=== PATIENT | female | born 1955 | race Caucasian/White ===

== ENCOUNTER 2017-05-17 06:02 | Day surgery (SDC) | payer BC ==
[~2017-05-17 06:02] MED LIST: Lactated Ringers 1,000 ML IV SCH; Lidocaine 1%/Sod Bicarbonate in NS 8.4% 1 ML Syringe IDERM PRN; Scopolamine 1 MG Transdermal Patch TRDERM ONE; Sodium Chloride 0.9% 10 ML Syringe FLUSH PRN
[2017-05-17] MEDS ORDERED: Bupivacaine 0.25% 30 ML SDV ONE (06:22)
[2017-05-17] MEDS: Lactated Ringers 1,000 ML IV SCH ×2 (06:25→14:25)
[2017-05-17] MEDS ORDERED: Scopolamine 1 MG Transdermal Patch TRDERM ONE (06:30)
[2017-05-17] MEDS ORDERED: Naloxone 0.4 MG/ML SDV IVPUSH PRN (06:32)
[2017-05-17] MEDS ORDERED: Ondansetron 4 MG/2 ML SDV IVPUSH PRN ×2 (06:32→09:41)
[2017-05-17] MEDS ORDERED: Ropivacaine 0.5% 5 MG/ML 30 ML SDV ONE ×2 (06:40→06:50)
[2017-05-17] MEDS ORDERED: EPINEPHrine 1 MG/ML SDV ONE ×2 (06:40→06:50)
--- NOTE | 2017-05-17 06:40 | PCM.PREANE ---
Preanesthetic Assessment - Anesthesia/Transfusion/Family Hx Anesthesia History: Prior Anesthesia Reaction Type of Anesthesia Reaction: Excessive Nausea/Vomiting Family History of Anesthesia Reaction: No - Review of Systems General: No Symptoms Pulmonary: No Symptoms Cardiovascular: Other (htn) Gastrointestinal: Other (GERD occ eepending on diet ) Neurological: No Symptoms Other: Reports: None, Thyroid Problems (hypothyroid ) - Physical Assessment NPO Status Date: 05/16/17 NPO Status Time: 21:00 Pulse: 71 O2 Sat by Pulse Oximetry: 96 Respiratory Rate: 16 Blood Pressure: 137/99 Temperature: 36.6 C Height: 1.68 m Weight: 89 kg ASA Class: 2 Mental Status: Alert & Oriented x3 Airway Class: Mallampati = 2 Dentition: Reports: Normal Dentition Thyro-Mental Finger Breadths: 3 Mouth Opening Finger Breadths: 3 ROM/Head Extension: Full Lungs: Clear to Auscultation, Normal Respiratory Effort Cardiovascular: Regular Rate, Regular Rhythm - Lab Values: Laboratory Last Values MRSA (PCR) Negative 05/01/17 11:23 - Allergies Allergies/Adverse Reactions: Allergies Allergy/AdvReac Type Severity Reaction Status Date / Time latex Allergy Blisters Verified 05/16/17 14:14 Penicillins Allergy Cannot Verified 05/16/17 14:14 Remember hydrochlorothiazide AdvReac Cough Verified 05/16/17 14:25 lisinopril AdvReac Cough Verified 05/16/17 14:25 diuretics AdvReac Cough Uncoded 05/16/17 14:25 - Blood Blood Available: No Product(s) Available: None - Anesthesia Plan Pre-Op Medication Ordered: None Beta Joann: Carvedilol Med Last Dose Date: 05/17/17 Med Last Dose Time: 04:00 - Acknowledgements Anesthesia Type Planned: General Anesthesia (if spinal is ineffective ), Spinal (with duramorph) Pt an Appropriate Candidate for the Planned Anesthesia: Yes Alternatives and Risks of Anesthesia Discussed w Pt/Guardian: Yes Pt/Guardian Understands and Agrees with Anesthesia Plan: Yes PreAnesthesia Questionnaire Cardiovascular History: Reports: High Cholesterol, Hypertension Respiratory History: Reports: None Gastrointestinal History: Reports: Diverticulosis, GERD Genitourinary History: Reports: None [employer] O[employer]ATOR History: Reports: None Musculoskeletal History: Reports: Osteoarthritis, Other (See Below) Psychiatric History: Reports: None Endocrine/Metabolic History: Reports: Hypothyroidism, Osteopenia Hematologic History: Reports: None Immunologic History: Reports: None Oncologic (Cancer) History: Reports: None Dermatologic History: Reports: Melanoma - Past Surgical History Head Surgeries/Procedures: Reports: None HEENT Surgical History: Reports: Myringotomy w Tube(s), Tonsillectomy Cardiovascular Surgical History: Reports: None Respiratory Surgical History: Reports: None GI Surgical History: Reports: Appendectomy, Colonoscopy Female Surgical History: Reports: Breast Biopsy Male Surgical History: Reports: None Endocrine Surgical History: Reports: None Neurological Surgical History: Reports: Other (See Below) Other Neurological Surgeries/Procedures: disc repair Musculoskeletal Surgical History: Reports: Other (See Below) Other Musculoskeletal Surgeries/Procedures:: palmar fascia contracture with surgical repair, right knee arthroplasty, right shoulder arthroplasty, tumor removed from left foot x2, left knee arthroplasty, left wrist ORIF Oncologic Surgical History: Reports: None - SUBSTANCE USE Smoking Status *Q: Never Smoker Second Hand Smoke Exposure: No Recreational Drug Use History: No - HOME MEDS Home Medications: Home Meds Carvedilol [Carvedilol] 25 mg PO BID 05/16/17 [History] Cholecalciferol (Vitamin D3) [Vitamin D3] 1,000 unit PO DAILY 05/16/17 [History] Levothyroxine 25 mg PO DAILY 05/16/17 [History] Pantoprazole Sodium [Protonix] 40 mg PO DAILY 05/16/17 [History] Simvastatin [Zocor] 20 mg PO DAILY 05/16/17 [History] - CURRENT (IN HOUSE) MEDS Current Meds: Current Medications Lactated Ringer's (Ringers, Lactated) 1,000 mls @ 125 mls/hr IV ASDIRECTED JAROCHO Stop: 05/17/17 23:00 Lidocaine/Sodium Bicarbonate (Buffered Lidocaine 1% In Ns 8.4%) 0.25 ml IDERM ONETIME PRN PRN Reason: Prior to IV Start Stop: 05/17/17 18:00 Scopolamine (Scopolamine) 1 each TRDERM ONETIME ONE Stop: 05/17/17 00:02 Sodium Chloride (Saline Flush) 10 ml FLUSH ASDIRECTED PRN PRN Reason: Keep Vein Open Stop: 05/17/17 18:00 Discontinued Medications Lactated Ringer's (Ringers, Lactated) 1,000 mls @ 125 mls/hr IV ASDIRECTED JAROCHO Lidocaine/Sodium Bicarbonate (Buffered Lidocaine 1% In Ns 8.4%) 0.25 ml IDERM ONETIME PRN PRN Reason: Prior to IV Start Scopolamine (Scopolamine) 1 each TRDERM ONETIME ONE Stop: 05/17/17 00:02 Sodium Chloride (Saline Flush) 10 ml FLUSH ASDIRECTED PRN PRN Reason: Keep Vein Open
[2017-05-17] MEDS ORDERED: Propofol 200 MG/20 ML SDV ONE ×2 (06:57→09:21)
[2017-05-17] MEDS ORDERED: fentaNYL 100 MCG/2 ML SDV ONE (06:57)
[2017-05-17] MEDS ORDERED: Midazolam 1 MG/ML 2 ML SDV ONE (06:57)
[2017-05-17] MEDS ORDERED: ceFAZolin 1 GM Vial ONE (07:01)
[2017-05-17] MEDS ORDERED: Ondansetron 4 MG/2 ML SDV ONE (07:02)
[2017-05-17] MEDS ORDERED: Dexamethasone 4 MG/ML SDV ONE (07:02)
[2017-05-17] MEDS ORDERED: Ketamine 500 mg/10 ML MDV ONE (07:04)
[2017-05-17] MEDS ORDERED: Lidocaine 1% 4 ML ONE (07:32)
[2017-05-17] MEDS: Iodine/Sodium Iodide 2% Tincture 30 ML Bottle ONE ×2 (08:04→08:40)
[2017-05-17] MEDS: ceFAZolin 1 GM Vial ONE ×2 (08:04→08:43)
[2017-05-17] MEDS: Bupivacaine 0.25% 30 ML SDV ONE ×5 (08:05→09:15)
[2017-05-17] MEDS: Morphine 8 MG, EPINEPHrine 0.3 MG, Cefuroxime 750 MG, Ketorolac 30 MG, Sodium Chloride ... ONE ×10 (08:06→08:48)
[2017-05-17] MEDS: Vancomycin 1 GM SDV ONE ×2 (08:06→08:52)
[2017-05-17] MEDS: Triamcinolone Acetonide 40 MG/ML 1 ML MDV ONE ×3 (08:07→09:15)
[2017-05-17] MEDS ORDERED: Lactated Ringers 2,000 ML ONE (08:41)
[2017-05-17] MEDS ORDERED: Morphine 4 MG/ML Syringe IVPUSH PRN (09:00)
[2017-05-17] MEDS ORDERED: Cyclobenzaprine 10 MG Tab PO PRN (09:00)
[2017-05-17] MEDS ORDERED: Magnesium Hydroxide 400 MG/5 ML Susp 30 ML Cup PO PRN (09:00)
[2017-05-17] MEDS ORDERED: Bisacodyl 5 MG Tab PO PRN (09:00)
[2017-05-17] MEDS ORDERED: Sennosides 8.6 MG Tab PO PRN (09:00)
[2017-05-17] MEDS ORDERED: Ketorolac 15 MG/ML SDV IVPUSH PRN (09:00)
[2017-05-17] MEDS ORDERED: Meperidine PF 50 MG/ML Syringe IVPUSH PRN (09:41)
[2017-05-17] MEDS ORDERED: fentaNYL 100 MCG/2 ML SDV IVPUSH PRN (09:41)
[2017-05-17] MEDS ORDERED: diphenhydrAMINE 50 MG/ML SDV IVPUSH PRN (09:41)
--- NOTE | 2017-05-17 09:41 | PCM.POSTAN ---
POST ANESTHESIA ASSESSMENT - MENTAL STATUS Mental Status: Alert, Oriented - VITAL SIGNS Pulse Rate: 61 SaO2: 100 Resp Rate: 16 Blood Pressure: 126/71 Temperature: 36.4 C - RESPIRATORY Respiratory Status: Respiratory Rate WNL, Airway Patent, O2 Saturation Stable, Supplemental Oxygen - CARDIOVASCULAR CV Status: Pulse Rate WNL, Blood Pressure Stable - GASTROINTESTINAL GI Status: No Symptoms - PAIN Pain Score: 0 - POST OP HYDRATION Hydration Status: Adequate & Stable
--- NOTE | 2017-05-17 10:27 | CR ---
Left knee: AP and lateral views of the left knee were obtained. Comparison: No prior knee exam. Knee prosthesis is seen. Components are aligned. Soft tissue air is noted from the surgical procedure. Underlying bony structures are intact. Impression: 1. Satisfactory postop radiographic appearance of recently placed left knee prosthesis. Diagnostic code #2
[2017-05-17] MEDS ORDERED: Pantoprazole 40 MG Tab.CR PO PRN (13:06)
--- NOTE | 2017-05-17 14:45 | PCM.SN ---
- Free Text/Narrative Note: Left selective femoral nerve block at the adductor canal for post-procedure pain control Time Out: 1004 Start: 1004 End: 1008 Chart reviewed. Consent signed. Questions answered. Appropriate monitors applied. Time out performed. Left mid-shaft femur evaluated with ultrasound. Scanning medially femur, I was able to identify the femoral artery in the adductor canal. The saphenous nerve was lateral to the artery. The skin was prepped lateral to the ultrasound probe with chlorahexadine. Skin localized with 3mL of 1% lidocaine. The 21ga 4 insulated block needle was inserted under direct ultrasound guidance into the adductor canal. 20mL of 0.5% ropivacaine with 1:200,000 epinephrine was injected cirmcumferentially about the nerve with intermittent negative aspiration every 5mL. Patient tolerated the procedure well. See vital signs on nurses notes. Block completed postoperatively in PACU. Mynor Mendez CRNA
[2017-05-17] MEDS: ceFAZolin 2 GM in Premix Bag 1 BAG IV SCH ×2 (15:28→23:08)
--- NOTE | 2017-05-17 16:45 | PCM.CONS ---
H&P History of Present Illness - General Date of Service: 05/17/17 Admit Problem/Dx: Admission Diagnosis/Problem Admission Diagnosis/Problem Osteoarthritis of knee Source of Information: Patient, Old Records, Provider, RN, RN Notes Reviewed History Limitations: Reports: No Limitations - History of Present Illness Initial Comments - Free Text/Narative: Catalina Dominguez is a 61 yo female patient of Dr. Rodriguez who is post-operative day 0 of left revision with TKA. Hospital medicine was consulted for post-operative medical care. At this time she is resting comfortably. Pain is controlled at 2/ 10. She denies any chest pain, shortness of breath, palpitations, nausea, or vomiting. She carries a history of: HLD, HTN, diverticulosis, GERD, OA, hypothyroidism, osteopenia, melanoma. She was never a smoker. She is a full code. Her primary care provider is Dr. Baker at [facility] in [place]. Left Knee Pain Score (Numeric/FACES): 2 - Related Data Allergies/Adverse Reactions: Allergies Allergy/AdvReac Type Severity Reaction Status Date / Time latex Allergy Blisters Verified 05/16/17 14:14 Penicillins Allergy Cannot Verified 05/16/17 14:14 Remember hydrochlorothiazide AdvReac Cough Verified 05/16/17 14:25 lisinopril AdvReac Cough Verified 05/16/17 14:25 diuretics AdvReac Cough Uncoded 05/16/17 14:25 Home Medications: Home Meds Carvedilol [Carvedilol] 25 mg PO BID 05/16/17 [History] Cholecalciferol (Vitamin D3) [Vitamin D3] 1,000 unit PO DAILY 05/16/17 [History] Levothyroxine 25 mg PO DAILY 05/16/17 [History] Pantoprazole Sodium [Protonix] 40 mg PO DAILY PRN 05/16/17 [History] Simvastatin [Zocor] 20 mg PO BEDTIME 05/16/17 [History] Past Medical History Cardiovascular History: Reports: High Cholesterol, Hypertension Respiratory History: Reports: None Gastrointestinal History: Reports: Diverticulosis, GERD Genitourinary History: Reports: None 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 Musculoskeletal History: Reports: Osteoarthritis, Other (See Below) Psychiatric History: Reports: None Endocrine/Metabolic History: Reports: Hypothyroidism, Osteopenia Hematologic History: Reports: None Immunologic History: Reports: None Oncologic (Cancer) History: Reports: None Dermatologic History: Reports: Melanoma - Past Surgical History Head Surgeries/Procedures: Reports: None HEENT Surgical History: Reports: Myringotomy w Tube(s), Tonsillectomy Cardiovascular Surgical History: Reports: None Respiratory Surgical History: Reports: None GI Surgical History: Reports: Appendectomy, Colonoscopy Female Surgical History: Reports: Breast Biopsy Male Surgical History: Reports: None Endocrine Surgical History: Reports: None Neurological Surgical History: Reports: Other (See Below) Other Neurological Surgeries/Procedures: disc repair Musculoskeletal Surgical History: Reports: Other (See Below) Other Musculoskeletal Surgeries/Procedures:: palmar fascia contracture with surgical repair, right knee arthroplasty, right shoulder arthroplasty, tumor removed from left foot x2, left knee arthroplasty, left wrist ORIF Oncologic Surgical History: Reports: None Social & Family History - Tobacco Use Smoking Status *Q: Never Smoker Second Hand Smoke Exposure: No - Caffeine Use Caffeine Use: Reports: Soda - Recreational Drug Use Recreational Drug Use: No Drug Use in Last 12 Months: No H&P Review of Systems - Review of Systems: Review Of Systems: See Below General: Reports: No Symptoms HEENT: Reports: No Symptoms Pulmonary: Reports: No Symptoms Cardiovascular: Reports: No Symptoms Gastrointestinal: Reports: No Symptoms Genitourinary: Reports: No Symptoms Musculoskeletal: Reports: Joint Pain (left knee ) Skin: Reports: No Symptoms Psychiatric: Reports: No Symptoms Neurological: Reports: No Symptoms Hematologic/Lymphatic: Reports: No Symptoms Immunologic: Reports: No Symptoms Exam - Exam Exam: See Below - Vital Signs Vital Signs: Last Vital Signs Temp 97.9 F 05/17/17 11:00 Pulse 65 05/17/17 11:00 Resp 16 05/17/17 11:00 BP 136/89 05/17/17 11:00 Pulse Ox 94 L 05/17/17 11:00 Weight: 196 lb 3.382 oz - Exam Quality Assessment: DVT Prophylaxis General: Alert, Oriented, Cooperative HEENT: PERRLA, Hearing Intact, Mucosa Moist & Wren, Nares Patent, Normal Nasal Septum, Posterior Pharynx Clear, Conjunctiva Clear, EOMI, EACs Clear, TMs Clear Neck: Supple, Trachea Midline. No: JVD Lungs: Clear to Auscultation, Normal Respiratory Effort Cardiovascular: Regular Rate, Regular Rhythm GI/Abdominal Exam: Normal Bowel Sounds, Soft, Non-Tender, No Organomegaly, No Distention, No Abnormal Bruit, No Mass, Pelvis Stable (Female) Exam: Deferred Rectal (Female) Exam: Deferred Back Exam: Normal Inspection, Full Range of Motion Extremities: No Pedal Edema, Normal Capillary Refill, Leg Pain (left), Other ( ANGIE bandage in place on left leg. Bandage is dry and intact. Cooling pack in place. ) Peripheral Pulses: 2+: Radial (L), Radial (R), Posterior Tibial (R), Dorsalis Pedis (R) Skin: Warm, Dry, Intact Neurological: Cranial Nerves Intact (grossly ) Neuro Extensive - Mental Status: Alert, Oriented x3, Normal Mood/Affect, Normal Cognition, Memory Intact Psychiatric: Alert, Normal Affect, Normal Mood Consult PN Assessment/Plan POD#: 0 Procedures: Procedures DXA BONE DENSITY AXIAL (04/20/17) (1) S/P total knee arthroplasty SNOMED Code(s): 8002722209145, 5799473416701 Code(s): Z96.659 - PRESENCE OF UNSPECIFIED ARTIFICIAL KNEE JOINT Priority: High Current Visit: Yes Qualifiers: Laterality: left Qualified Code(s): Z96.652 - Presence of left artificial knee joint (2) Osteoarthritis SNOMED Code(s): 512952840 Code(s): M19.90 - UNSPECIFIED OSTEOARTHRITIS, UNSPECIFIED SITE Priority: High Current Visit: Yes Qualifiers: Osteoarthritis location: knee Osteoarthritis type: primary Laterality: bilateral Qualified Code(s): M17.0 - Bilateral primary osteoarthritis of knee (3) HLD (hyperlipidemia) SNOMED Code(s): 06475186 Code(s): E78.5 - HYPERLIPIDEMIA, UNSPECIFIED Priority: Low Current Visit : No Qualifiers: Hyperlipidemia type: unspecified Qualified Code(s): E78.5 - Hyperlipidemia , unspecified (4) HTN (hypertension) SNOMED Code(s): 03991197 Code(s): I10 - ESSENTIAL (PRIMARY) HYPERTENSION Priority: Low Current Visit: No Qualifiers: Hypertension type: unspecified Qualified Code(s): I10 - Essential (primary ) hypertension (5) Diverticulosis SNOMED Code(s): 22215390 Code(s): K57.90 - DVRTCLOS OF INTEST, PART UNSP, W/O PERF OR ABSCESS W/O BLEED Priority: Low Current Visit: No Qualifiers: Diverticulosis site: unspecified location Diverticulosis bleeding: diverticulosis without bleeding Qualified Code(s): K57.90 - Diverticulosis of intestine, part unspecified, without perforation or abscess without bleeding (6) GERD (gastroesophageal reflux disease) SNOMED Code(s): 224093745 Code(s): K21.9 - GASTRO-ESOPHAGEAL REFLUX DISEASE WITHOUT ESOPHAGITIS Priority: Low Current Visit: No Qualifiers: Esophagitis presence: esophagitis presence not specified Qualified Code(s) : K21.9 - Gastro-esophageal reflux disease without esophagitis (7) Hypothyroidism SNOMED Code(s): 51387037 Code(s): E03.9 - HYPOTHYROIDISM, UNSPECIFIED Priority: Low Current Visit : No Qualifiers: Hypothyroidism type: unspecified Qualified Code(s): E03.9 - Hypothyroidism , unspecified (8) Osteopenia SNOMED Code(s): 485558952 Code(s): M85.80 - OT DISRD OF BONE DENSITY AND STRUCTURE, UNSPECIFIED SITE Priority: Low Current Visit: No Qualifiers: Laterality: unspecified laterality (9) History of melanoma SNOMED Code(s): 472585785 Code(s): Z85.820 - PERSONAL HISTORY OF MALIGNANT MELANOMA OF SKIN Priority : Low Current Visit: No Problem List Initiated/Reviewed/Updated: Yes Plan: I/P: Acute: S/P left total knee arthroplasty - post-operative day 0 -DVT prophylaxis and pain management per primary care team -PT/OT -IS/RT -Monitor oxygen saturation -Titrate oxygen as needed -Vital signs stable -Monitor labs -Pre-operative Hgb was 14.6 S/P right knee cortisone injection -Management per primary care team Osteoarthritis of bilateral knees -Pain management per primary care team Chronic: (home meds) HLD HTN Diverticulosis GERD Hypothyroidism Osteopenia Hx/o melanoma Plan: CM for discharge planning GI prophylaxis Home medications as indicated Other orders as listed above Routine AM labs She is a full code. Her PCP is Dr. Baker Thank you for allowing us to participate in the care of this patient!! Total time spent with patient 25 minutes Requesting Provider: Dr. Rodriguez Date Consult Requested: 05/17/17 Reason for Consult: Post-operative medical management Time Spent (in minutes): 25
[2017-05-17] MEDS: Acetaminophen/oxyCODONE 325-5 MG Tab PO PRN (20:22)
[2017-05-17] MEDS: Docusate Sodium 100 MG Cap PO SCH (20:23)
[2017-05-17] MEDS: Carvedilol 12.5 MG Tab PO SCH (20:23)
[2017-05-17] MEDS: Famotidine 20 MG Tab PO SCH (20:30)
[2017-05-17] MEDS ORDERED: Simvastatin 20 MG Tab PO SCH (21:00)
--- NOTE | 2017-05-18 06:26 | PCM.CONSN ---
- General Info Date of Service: 05/18/17 Admission Dx/Problem (Free Text): Admission Diagnosis/Problem Admission Diagnosis/Problem Osteoarthritis of knee Subjective Update: In to see Catalina. She is doing well. Pain is controlled at 2/10. She has been urinating and ambulating. Denies any nausea, vomiting, chest pain, SOB, or palpitations. Functional Status: Reports: Pain Controlled, Tolerating Diet, Ambulating, Urinating, Incentive Spirometry. Denies: New Symptoms - Review of Systems General: Reports: No Symptoms HEENT: Reports: No Symptoms Pulmonary: Reports: No Symptoms Cardiovascular: Reports: No Symptoms Gastrointestinal: Reports: No Symptoms Genitourinary: Reports: No Symptoms Musculoskeletal: Reports: No Symptoms, Leg Pain (left ) Skin: Reports: No Symptoms Neurological: Reports: No Symptoms Psychiatric: Reports: No Symptoms - Patient Data Vitals - Most Recent: Last Vital Signs Temp 98.0 F 05/18/17 04:30 Pulse 64 05/18/17 04:30 Resp 20 05/18/17 04:30 BP 124/68 05/18/17 04:30 Pulse Ox 93 L 05/18/17 04:30 Weight - Most Recent: 196 lb 3.382 oz I&O - Last 24 Hours: Intake & Output 05/17/17 05/17/17 05/18/17 14:59 22:59 06:59 Intake Total 250 480 Output Total 1250 800 Balance -1000 -320 Lab Results Last 24 Hours: Laboratory Results - last 24 hr 05/18/17 Range/Units 05:03 WBC 17.24 H (3.98-10.04) K/mm3 RBC 3.97 L (3.98-5.22) M/mm3 Hgb 11.2 (11.2-15.7) gm/L Hct 34.4 (34.1-44.9) % MCV 86.6 (79.4-94.8) fl MCH 28.2 (25.6-32.2) pg MCHC 32.6 (32.2-35.5) g/dl RDW Std Deviation 41.2 (36.4-46.3) fL Plt Count 227 (182-369) K/mm3 MPV 10.9 (9.4-12.3) fl Neut % (Auto) 80.9 H (34.0-71.1) % Lymph % (Auto) 9.0 L (19.3-51.7) % [place] % (Auto) 9.9 (4.7-12.5) % Eos % (Auto) 0 L (0.7-5.8) Baso % (Auto) 0.0 L (0.1-1.2) % Neut # (Auto) 13.95 H (1.56-6.13) K/mm3 Lymph # (Auto) 1.55 (1.18-3.74) K/mm3 [place] # (Auto) 1.70 H (0.24-0.36) K/mm3 Eos # (Auto) 0.00 L (0.04-0.36) K/mm3 Baso # (Auto) 0.00 L (0.01-0.08) K/mm3 Med Orders - Current: Current Medications Aspirin (Ecotrin) 325 mg PO BID [facility] Bisacodyl (Dulcolax) 5 mg PO DAILY PRN PRN Reason: Constipation Carvedilol (Coreg) 25 mg PO BID [facility] Last Admin: 05/17/17 20:23 Dose: 25 mg Cholecalciferol (Vitamin D3) 1,000 units PO DAILY [facility] Cyclobenzaprine HCl (Flexeril) 10 mg PO TID PRN PRN Reason: Spasms Docusate Sodium (Colace) 100 mg PO BID [facility] Last Admin: 05/17/17 20:23 Dose: 100 mg Famotidine (Pepcid) 20 mg PO BID [facility] Last Admin: 05/17/17 20:30 Dose: 20 mg Cefazolin Sodium/Dextrose 2 gm (/ Premix) 50 mls @ 100 mls/hr IV Q8H [facility] Stop: 05/18/17 07:29 Last Admin: 05/17/17 23:08 Dose: 100 mls/hr Ketorolac Tromethamine (Toradol) 15 mg IVPUSH Q6H PRN PRN Reason: Pain Levothyroxine Sodium (Levothyroxine) 25 mcg PO DAILY [facility] Magnesium Hydroxide (Milk Of Magnesia) 30 ml PO BID PRN PRN Reason: Constipation Morphine Sulfate (Morphine) 2 mg IVPUSH Q2H PRN PRN Reason: Breakthrough Pain Naloxone HCl (Narcan) 0.1 mg IVPUSH Q5M PRN PRN Reason: Oversedation Ondansetron HCl (Zofran) 4 mg IVPUSH Q6H PRN PRN Reason: Nausea/Vomiting Oxycodone/Acetaminophen (Percocet 325-5 Mg) 1 - 2 tab PO Q4H PRN PRN Reason: Pain Last Admin: 05/17/17 20:22 Dose: 2 tab Pantoprazole Sodium (Protonix) 40 mg PO DAILY PRN PRN Reason: Indigestion Senna (Senna) 8.6 mg PO BID PRN PRN Reason: Constipation Simvastatin (Zocor) 20 mg PO BEDTIME [facility] Last Admin: 05/17/17 20:30 Dose: 20 mg Discontinued Medications Bupivacaine HCl (Marcaine 0.25%) Confirm Administered Dose 30 ml .ROUTE .STK- MED ONE Stop: 05/17/17 06:23 Last Admin: 05/17/17 09:15 Dose: 4 ml Bupivacaine HCl (Marcaine 0.25%) Confirm Administered Dose 30 ml .ROUTE .STK- MED ONE Stop: 05/17/17 06:23 Cefazolin Sodium (Ancef) Confirm Administered Dose 2 gm .ROUTE .STK-MED ONE Stop: 05/17/17 06:22 Last Admin: 05/17/17 08:43 Dose: 2 gm Cefazolin Sodium (Ancef) Confirm Administered Dose 2 gm .ROUTE .STK-MED ONE Stop: 05/17/17 07:02 Morphine Sulfate 8 mg/Epinephrine HCl 0.3 mg/Cefuroxime Sodium 750 mg/Ketorolac Tromethamine 30 mg/Sodium Chloride 27.9 ml 0 mg .XX ONETIME ONE Stop: 05/17/17 07:46 Last Admin: 05/17/17 08:48 Dose: 788.3 mg Dexamethasone (Dexamethasone) Confirm Administered Dose 4 mg .ROUTE .STK-MED ONE Stop: 05/17/17 07:03 Diphenhydramine HCl (Benadryl) 25 mg IVPUSH Q6H PRN PRN Reason: Pruritis Stop: 05/17/17 12:30 Epinephrine HCl (Adrenalin) Confirm Administered Dose 1 mg .ROUTE .STK-MED ONE Stop: 05/17/17 06:41 Epinephrine HCl (Adrenalin) Confirm Administered Dose 1 mg .ROUTE .STK-MED ONE Stop: 05/17/17 06:51 Fentanyl (Sublimaze) Confirm Administered Dose 100 mcg .ROUTE .STK-MED ONE Stop: 05/17/17 06:58 Fentanyl (Sublimaze) 50 mcg IVPUSH Q5M PRN PRN Reason: Pain Stop: 05/17/17 12:30 Lactated Ringer's (Ringers, Lactated) 1,000 mls @ 125 mls/hr IV ASDIRECTED [facility] Lactated Ringer's (Ringers, Lactated) 1,000 mls @ 125 mls/hr IV ASDIRECTED [facility] Stop: 05/17/17 23:00 Last Admin: 05/17/17 14:25 Dose: 125 mls/hr Lidocaine HCl (Xylocaine-Mpf 1%) Confirm Administered Dose 4 mls @ as directed .ROUTE .STK-MED ONE Stop: 05/17/17 07:33 Lactated Ringer's (Ringers, Lactated) Confirm Administered Dose 2,000 mls @ as directed .ROUTE .STK-MED ONE Stop: 05/17/17 08:42 Iodine (Iodine 2% Mild Tincture) Confirm Administered Dose 30 ml .ROUTE .STK- MED ONE Stop: 05/17/17 06:22 Last Admin: 05/17/17 08:40 Dose: 18 ml Ketamine HCl (Ketalar) Confirm Administered Dose 500 mg .ROUTE .STK-MED ONE Stop: 05/17/17 07:05 Lidocaine/Sodium Bicarbonate (Buffered Lidocaine 1% In Ns 8.4%) 0.25 ml IDERM ONETIME PRN PRN Reason: Prior to IV Start Lidocaine/Sodium Bicarbonate (Buffered Lidocaine 1% In Ns 8.4%) 0.25 ml IDERM ONETIME PRN PRN Reason: Prior to IV Start Stop: 05/17/17 18:00 Last Admin: 05/17/17 06:25 Dose: 0.25 ml Meperidine HCl (Demerol) 12.5 mg IVPUSH ONETIME PRN PRN Reason: Shivering Stop: 05/17/17 12:30 Midazolam HCl (Versed 1 Mg/Ml) Confirm Administered Dose 2 mg .ROUTE .STK-MED ONE Stop: 05/17/17 06:58 Ondansetron HCl (Zofran) Confirm Administered Dose 4 mg .ROUTE .STK-MED ONE Stop: 05/17/17 07:03 Ondansetron HCl (Zofran) 4 mg IVPUSH ONETIME PRN PRN Reason: Nausea/Vomiting Stop: 05/17/17 12:30 Propofol (Diprivan 20 Ml) Confirm Administered Dose 600 mg .ROUTE .STK-MED ONE Stop: 05/17/17 06:58 Propofol (Diprivan 20 Ml) Confirm Administered Dose 200 mg .ROUTE .STK-MED ONE Stop: 05/17/17 09:22 Ropivacaine (Naropin 0.5%) Confirm Administered Dose 30 ml .ROUTE .STK-MED ONE Stop: 05/17/17 06:41 Ropivacaine (Naropin 0.5%) Confirm Administered Dose 30 ml .ROUTE .STK-MED ONE Stop: 05/17/17 06:51 Scopolamine (Scopolamine) 1 each TRDERM ONETIME ONE Stop: 05/17/17 00:02 Scopolamine (Scopolamine) 1 each TRDERM ONETIME ONE Stop: 05/17/17 06:31 Last Admin: 05/17/17 06:40 Dose: 1 each Sodium Chloride (Saline Flush) 10 ml FLUSH ASDIRECTED PRN PRN Reason: Keep Vein Open Sodium Chloride (Saline Flush) 10 ml FLUSH ASDIRECTED PRN PRN Reason: Keep Vein Open Stop: 05/17/17 18:00 Tranexamic Acid (Cyklokapron) Confirm Administered Dose 1,000 mg .ROUTE .STK- MED ONE Stop: 05/17/17 06:22 Last Admin: 05/17/17 08:54 Dose: 1,000 mg Triamcinolone Acetonide (Kenalog-40) Confirm Administered Dose 80 mg .ROUTE .STK -MED ONE Stop: 05/17/17 06:22 Last Admin: 05/17/17 09:15 Dose: 80 mg Vancomycin HCl (Vancomycin) Confirm Administered Dose 1 gm .ROUTE .STK-MED ONE Stop: 05/17/17 06:22 Last Admin: 05/17/17 08:52 Dose: 1 gm - Exam Quality Assessment: DVT Prophylaxis General: Alert, Oriented, Cooperative, No Acute Distress HEENT: Pupils Equal, Pupils Reactive, EOMI, Mucous Membr. Moist/[place] Neck: Supple, Trachea Midline, No JVD Lungs: Clear to Auscultation, Normal Respiratory Effort Cardiovascular: Regular Rate, Regular Rhythm GI/Abdominal Exam: Normal Bowel Sounds, Soft, Non-Tender, No Organomegaly, No Distention, No Abnormal Bruit, No Mass, Pelvis Stable (Female) Exam: Deferred Back Exam: Normal Inspection, Full Range of Motion Extremities: No Pedal Edema, Normal Capillary Refill, Leg Pain, Limited Range of Motion, Other (ANGIE bandage in place on left leg. Bandage is dry and intact. Cooling pack in place ) Peripheral Pulses: 2+: Radial (L), Radial (R), Posterior Tibial (R), Dorsalis Pedis (R) Skin: Warm, Dry, Intact Wound/Incisions: Healing Well, Dressing Dry and Intact, No Drainage Neurological: No New Focal Deficit Psy/Mental Status: Alert, Normal Affect, Normal Mood Consult PN Assessment/Plan POD#: 1 Procedures: Procedures DXA BONE DENSITY AXIAL (04/20/17) (1) S/P total knee arthroplasty SNOMED Code(s): 0604298580192, 0560338068925 Code(s): Z96.659 - PRESENCE OF UNSPECIFIED ARTIFICIAL KNEE JOINT Priority: High Current Visit: Yes Qualifiers: Laterality: left Qualified Code(s): Z96.652 - Presence of left artificial knee joint (2) Osteoarthritis SNOMED Code(s): 987264529 Code(s): M19.90 - UNSPECIFIED OSTEOARTHRITIS, UNSPECIFIED SITE Priority: High Current Visit: Yes Qualifiers: Osteoarthritis location: knee Osteoarthritis type: primary Laterality: bilateral Qualified Code(s): M17.0 - Bilateral primary osteoarthritis of knee (3) HLD (hyperlipidemia) SNOMED Code(s): 82746038 Code(s): E78.5 - HYPERLIPIDEMIA, UNSPECIFIED Priority: Low Current Visit : No Qualifiers: Hyperlipidemia type: unspecified Qualified Code(s): E78.5 - Hyperlipidemia , unspecified (4) HTN (hypertension) SNOMED Code(s): 55439767 Code(s): I10 - ESSENTIAL (PRIMARY) HYPERTENSION Priority: Low Current Visit: No Qualifiers: Hypertension type: unspecified Qualified Code(s): I10 - Essential (primary ) hypertension (5) Diverticulosis SNOMED Code(s): 23085317 Code(s): K57.90 - DVRTCLOS OF INTEST, PART UNSP, W/O PERF OR ABSCESS W/O BLEED Priority: Low Current Visit: No Qualifiers: Diverticulosis site: unspecified location Diverticulosis bleeding: diverticulosis without bleeding Qualified Code(s): K57.90 - Diverticulosis of intestine, part unspecified, without perforation or abscess without bleeding (6) GERD (gastroesophageal reflux disease) SNOMED Code(s): 770065552 Code(s): K21.9 - GASTRO-ESOPHAGEAL REFLUX DISEASE WITHOUT ESOPHAGITIS Priority: Low Current Visit: No Qualifiers: Esophagitis presence: esophagitis presence not specified Qualified Code(s) : K21.9 - Gastro-esophageal reflux disease without esophagitis (7) Hypothyroidism SNOMED Code(s): 27307086 Code(s): E03.9 - HYPOTHYROIDISM, UNSPECIFIED Priority: Low Current Visit : No Qualifiers: Hypothyroidism type: unspecified Qualified Code(s): E03.9 - Hypothyroidism , unspecified (8) Osteopenia SNOMED Code(s): 797710844 Code(s): M85.80 - OTH DISRD OF BONE DENSITY AND STRUCTURE, UNSPECIFIED SITE Priority: Low Current Visit: No Qualifiers: Laterality: unspecified laterality (9) History of melanoma SNOMED Code(s): 094481858 Code(s): Z85.820 - PERSONAL HISTORY OF MALIGNANT MELANOMA OF SKIN Priority : Low Current Visit: No Problem List Initiated/Reviewed/Updated: Yes Plan: I/P: Acute: S/P left total knee arthroplasty - post-operative day 1 -DVT prophylaxis and pain management per primary care team -PT/OT -IS/RT -Monitor oxygen saturation -Titrate oxygen as needed -Vital signs stable -Monitor labs -Pre-operative Hgb was 14.6, today 11.2 -labs look good S/P right knee cortisone injection -Management per primary care team Osteoarthritis of bilateral knees -Pain management per primary care team Chronic: (home meds) HLD HTN Diverticulosis GERD Hypothyroidism Osteopenia Hx/o melanoma Plan: CM for discharge planning GI prophylaxis Home medications as indicated Other orders as listed above Routine AM labs She is a full code. Her PCP is Dr. Baker Thank you for allowing us to participate in the care of this patient!! From a hospitalist standpoint she is doing well and cleared for discharge pending primary ortho team agreement. No concerns noted.
[2017-05-18] MEDS: Acetaminophen/oxyCODONE 325-5 MG Tab PO PRN ×2 (06:28→10:48)
[2017-05-18] MEDS: ceFAZolin 2 GM in Premix Bag 1 BAG IV SCH (06:28)
--- NOTE | 2017-05-18 06:59 | PCM.SURGPN ---
- General Info Date of Service: 05/18/17 POD#: 1 - Patient Data Vitals - Most Recent: Last Vital Signs Temp 98.0 F 05/18/17 04:30 Pulse 64 05/18/17 04:30 Resp 20 05/18/17 04:30 BP 124/68 05/18/17 04:30 Pulse Ox 93 L 05/18/17 04:30 Weight - Most Recent: 196 lb 3.382 oz I&O - Last 24 Hours: Intake & Output 05/17/17 05/17/17 05/18/17 14:59 22:59 06:59 Intake Total 250 480 Output Total 1250 800 Balance -1000 -320 Lab Results Last 24 Hrs: Laboratory Results - last 24 hr 05/18/17 Range/Units 05:03 WBC 17.24 H (3.98-10.04) K/mm3 RBC 3.97 L (3.98-5.22) M/mm3 Hgb 11.2 (11.2-15.7) gm/L Hct 34.4 (34.1-44.9) % MCV 86.6 (79.4-94.8) fl MCH 28.2 (25.6-32.2) pg MCHC 32.6 (32.2-35.5) g/dl RDW Std Deviation 41.2 (36.4-46.3) fL Plt Count 227 (182-369) K/mm3 MPV 10.9 (9.4-12.3) fl Neut % (Auto) 80.9 H (34.0-71.1) % Lymph % (Auto) 9.0 L (19.3-51.7) % [place] % (Auto) 9.9 (4.7-12.5) % Eos % (Auto) 0 L (0.7-5.8) Baso % (Auto) 0.0 L (0.1-1.2) % Neut # (Auto) 13.95 H (1.56-6.13) K/mm3 Lymph # (Auto) 1.55 (1.18-3.74) K/mm3 [place] # (Auto) 1.70 H (0.24-0.36) K/mm3 Eos # (Auto) 0.00 L (0.04-0.36) K/mm3 Baso # (Auto) 0.00 L (0.01-0.08) K/mm3 Med Orders - Current: Current Medications Aspirin (Ecotrin) 325 mg PO BID [facility] Bisacodyl (Dulcolax) 5 mg PO DAILY PRN PRN Reason: Constipation Carvedilol (Coreg) 25 mg PO BID [facility] Last Admin: 05/17/17 20:23 Dose: 25 mg Cholecalciferol (Vitamin D3) 1,000 units PO DAILY [facility] Cyclobenzaprine HCl (Flexeril) 10 mg PO TID PRN PRN Reason: Spasms Docusate Sodium (Colace) 100 mg PO BID [facility] Last Admin: 05/17/17 20:23 Dose: 100 mg Famotidine (Pepcid) 20 mg PO BID [facility] Last Admin: 05/17/17 20:30 Dose: 20 mg Cefazolin Sodium/Dextrose 2 gm (/ Premix) 50 mls @ 100 mls/hr IV Q8H [facility] Stop: 05/18/17 07:29 Last Admin: 05/18/17 06:28 Dose: 100 mls/hr Ketorolac Tromethamine (Toradol) 15 mg IVPUSH Q6H PRN PRN Reason: Pain Levothyroxine Sodium (Levothyroxine) 25 mcg PO DAILY [facility] Magnesium Hydroxide (Milk Of Magnesia) 30 ml PO BID PRN PRN Reason: Constipation Morphine Sulfate (Morphine) 2 mg IVPUSH Q2H PRN PRN Reason: Breakthrough Pain Naloxone HCl (Narcan) 0.1 mg IVPUSH Q5M PRN PRN Reason: Oversedation Ondansetron HCl (Zofran) 4 mg IVPUSH Q6H PRN PRN Reason: Nausea/Vomiting Oxycodone/Acetaminophen (Percocet 325-5 Mg) 1 - 2 tab PO Q4H PRN PRN Reason: Pain Last Admin: 05/18/17 06:28 Dose: 1 tab Pantoprazole Sodium (Protonix) 40 mg PO DAILY PRN PRN Reason: Indigestion Senna (Senna) 8.6 mg PO BID PRN PRN Reason: Constipation Simvastatin (Zocor) 20 mg PO BEDTIME [facility] Last Admin: 05/17/17 20:30 Dose: 20 mg Discontinued Medications Bupivacaine HCl (Marcaine 0.25%) Confirm Administered Dose 30 ml .ROUTE .STK- MED ONE Stop: 05/17/17 06:23 Last Admin: 05/17/17 09:15 Dose: 4 ml Bupivacaine HCl (Marcaine 0.25%) Confirm Administered Dose 30 ml .ROUTE .STK- MED ONE Stop: 05/17/17 06:23 Cefazolin Sodium (Ancef) Confirm Administered Dose 2 gm .ROUTE .STK-MED ONE Stop: 05/17/17 06:22 Last Admin: 05/17/17 08:43 Dose: 2 gm Cefazolin Sodium (Ancef) Confirm Administered Dose 2 gm .ROUTE .STK-MED ONE Stop: 05/17/17 07:02 Morphine Sulfate 8 mg/Epinephrine HCl 0.3 mg/Cefuroxime Sodium 750 mg/Ketorolac Tromethamine 30 mg/Sodium Chloride 27.9 ml 0 mg .XX ONETIME ONE Stop: 05/17/17 07:46 Last Admin: 05/17/17 08:48 Dose: 788.3 mg Dexamethasone (Dexamethasone) Confirm Administered Dose 4 mg .ROUTE .STK-MED ONE Stop: 05/17/17 07:03 Diphenhydramine HCl (Benadryl) 25 mg IVPUSH Q6H PRN PRN Reason: Pruritis Stop: 05/17/17 12:30 Epinephrine HCl (Adrenalin) Confirm Administered Dose 1 mg .ROUTE .STK-MED ONE Stop: 05/17/17 06:41 Epinephrine HCl (Adrenalin) Confirm Administered Dose 1 mg .ROUTE .STK-MED ONE Stop: 05/17/17 06:51 Fentanyl (Sublimaze) Confirm Administered Dose 100 mcg .ROUTE .STK-MED ONE Stop: 05/17/17 06:58 Fentanyl (Sublimaze) 50 mcg IVPUSH Q5M PRN PRN Reason: Pain Stop: 05/17/17 12:30 Lactated Ringer's (Ringers, Lactated) 1,000 mls @ 125 mls/hr IV ASDIRECTED [facility] Lactated Ringer's (Ringers, Lactated) 1,000 mls @ 125 mls/hr IV ASDIRECTED [facility] Stop: 05/17/17 23:00 Last Admin: 05/17/17 14:25 Dose: 125 mls/hr Lidocaine HCl (Xylocaine-Mpf 1%) Confirm Administered Dose 4 mls @ as directed .ROUTE .STK-MED ONE Stop: 05/17/17 07:33 Lactated Ringer's (Ringers, Lactated) Confirm Administered Dose 2,000 mls @ as directed .ROUTE .[facility]-MED ONE Stop: 05/17/17 08:42 Iodine (Iodine 2% Mild Tincture) Confirm Administered Dose 30 ml .ROUTE .STK- MED ONE Stop: 05/17/17 06:22 Last Admin: 05/17/17 08:40 Dose: 18 ml Ketamine HCl (Ketalar) Confirm Administered Dose 500 mg .ROUTE .ST-MED ONE Stop: 05/17/17 07:05 Lidocaine/Sodium Bicarbonate (Buffered Lidocaine 1% In Ns 8.4%) 0.25 ml IDERM ONETIME PRN PRN Reason: Prior to IV Start Lidocaine/Sodium Bicarbonate (Buffered Lidocaine 1% In Ns 8.4%) 0.25 ml IDERM ONETIME PRN PRN Reason: Prior to IV Start Stop: 05/17/17 18:00 Last Admin: 05/17/17 06:25 Dose: 0.25 ml Meperidine HCl (Demerol) 12.5 mg IVPUSH ONETIME PRN PRN Reason: Shivering Stop: 05/17/17 12:30 Midazolam HCl (Versed 1 Mg/Ml) Confirm Administered Dose 2 mg .ROUTE .[facility]-MED ONE Stop: 05/17/17 06:58 Ondansetron HCl (Zofran) Confirm Administered Dose 4 mg .ROUTE .ST-MED ONE Stop: 05/17/17 07:03 Ondansetron HCl (Zofran) 4 mg IVPUSH ONETIME PRN PRN Reason: Nausea/Vomiting Stop: 05/17/17 12:30 Propofol (Diprivan 20 Ml) Confirm Administered Dose 600 mg .ROUTE .STK-MED ONE Stop: 05/17/17 06:58 Propofol (Diprivan 20 Ml) Confirm Administered Dose 200 mg .ROUTE .ST-MED ONE Stop: 05/17/17 09:22 Ropivacaine (Naropin 0.5%) Confirm Administered Dose 30 ml .ROUTE .STK-MED ONE Stop: 05/17/17 06:41 Ropivacaine (Naropin 0.5%) Confirm Administered Dose 30 ml .ROUTE .ST-MED ONE Stop: 05/17/17 06:51 Scopolamine (Scopolamine) 1 each TRDERM ONETIME ONE Stop: 05/17/17 00:02 Scopolamine (Scopolamine) 1 each TRDERM ONETIME ONE Stop: 05/17/17 06:31 Last Admin: 05/17/17 06:40 Dose: 1 each Sodium Chloride (Saline Flush) 10 ml FLUSH ASDIRECTED PRN PRN Reason: Keep Vein Open Sodium Chloride (Saline Flush) 10 ml FLUSH ASDIRECTED PRN PRN Reason: Keep Vein Open Stop: 05/17/17 18:00 Tranexamic Acid (Cyklokapron) Confirm Administered Dose 1,000 mg .ROUTE .STK- MED ONE Stop: 05/17/17 06:22 Last Admin: 05/17/17 08:54 Dose: 1,000 mg Triamcinolone Acetonide (Kenalog-40) Confirm Administered Dose 80 mg .ROUTE .STK -MED ONE Stop: 05/17/17 06:22 Last Admin: 05/17/17 09:15 Dose: 80 mg Vancomycin HCl (Vancomycin) Confirm Administered Dose 1 gm .ROUTE .STK-MED ONE Stop: 05/17/17 06:22 Last Admin: 05/17/17 08:52 Dose: 1 gm - Exam Wound/Incisions: Dressing Dry and Intact General: Alert, Cooperative, No Acute Distress Lungs: Normal Respiratory Effort Extremities: Other (NVS intact for LLE. Bella's negative.) - Problem List Review Problem List Initiated/Reviewed/Updated: Yes - My Orders Last 24 Hours: Active Orders 24 hr Category Date Time Status Patient Status [ADT] Routine ADT 05/17/17 06:32 Active Ambulate [RC] PER UNIT ROUTINE Care 05/17/17 06:32 Active Antiembolic Devices [RC] PER UNIT ROUTINE Care 05/17/17 06:33 Active Cooling Warming Measures [RC] ASDIRECTED Care 05/17/17 09:42 Inactive May Shower [RC] ASDIRECTED Care 05/17/17 06:32 Active Notify Provider Consults [RC] ASDIRECTED Care 05/17/17 06:35 Active Notify Provider [RC] ASDIRECTED Care 05/17/17 09:42 Active Oxygen Therapy [RC] PRN Care 05/17/17 06:32 Active Pulse Oximetry [RC] ASDIRECTED Care 05/17/17 09:42 Active RT Incentive Spirometry [RC] Q1HWA Care 05/17/17 06:31 Active Up to Chair [RC] ASDIRECTED Care 05/17/17 06:32 Active Urinary Catheter Assessment [RC] ASDIRECTED Care 05/17/17 08:20 Active Urinary Catheter Removal [RC] Per Unit Routine Care 05/17/17 06:31 Active VTE/DVT Education [RC] PER UNIT ROUTINE Care 05/17/17 06:34 Active Vital Signs [RC] 03,09,15,21 Care 05/17/17 06:32 Active Consult to Physician [CONS] Routine Cons 05/17/17 06:32 Active OT Evaluation and Treatment [CONS] Routine Cons 05/17/17 06:31 Active PT Evaluation and Treatment [CONS] Routine Cons 05/17/17 06:31 Active Regular Diet [DIET] Diet 05/17/17 Lunch Active CBC WITH AUTO DIFF [HEME] AM Lab 05/18/17 05:03 Results COMPREHENSIVE METABOLIC PN,CMP [CHEM] AM Lab 05/18/17 05:03 Received Acetaminophen/oxyCODONE [Percocet 325-5 MG] Med 05/17/17 06:31 Active 1 - 2 tab PO Q4H PRN Aspirin [Ecotrin] Med 05/18/17 09:00 Active 325 mg PO BID Bisacodyl [Dulcolax] Med 05/17/17 09:00 Active 5 mg PO DAILY PRN Carvedilol [Coreg] Med 05/17/17 21:00 Active 25 mg PO BID Cholecalciferol (Vitamin D3) [Vitamin D3] Med 05/18/17 09:00 Active 1,000 units PO DAILY Cyclobenzaprine [Flexeril] Med 05/17/17 09:00 Active 10 mg PO TID PRN Docusate Sodium [Colace] Med 05/17/17 21:00 Active 100 mg PO BID Famotidine [Pepcid] Med 05/17/17 21:00 Active 20 mg PO BID Ketorolac [Toradol] Med 05/17/17 09:00 Active 15 mg IVPUSH Q6H PRN Levothyroxine Med 05/18/17 09:00 Active 25 mcg PO DAILY Magnesium Hydroxide [Milk of Magnesia] Med 05/17/17 09:00 Active 30 ml PO BID PRN Morphine Med 05/17/17 09:00 Active 2 mg IVPUSH Q2H PRN Naloxone [Narcan] Med 05/17/17 06:32 Active 0.1 mg IVPUSH Q5M PRN Ondansetron [Zofran] Med 05/17/17 06:32 Active 4 mg IVPUSH Q6H PRN Pantoprazole [ProTONIX] Med 05/17/17 13:06 Active 40 mg PO DAILY PRN Sennosides [Senna] Med 05/17/17 09:00 Active 8.6 mg PO BID PRN Simvastatin [Zocor] Med 05/17/17 21:00 Active 20 mg PO BEDTIME ceFAZolin [Ancef] 2 gm Med 05/17/17 15:00 Active Premix Bag 1 bag IV Q8H Antiembolic Hose [OM.PC] Per Unit Routine Oth 05/17/17 06:34 Ordered DVT/VTE Prophylaxis Reflex [OM.PC] Routine Oth 05/17/17 06:32 Ordered Ice Therapy [OM.PC] Per Unit Routine Oth 05/17/17 06:33 Ordered Sequential Compression Device [OM.PC] Per Unit Routine Oth 05/17/17 06:31 Ordered Resuscitation Status Routine Resus Stat 05/17/17 06:32 Ordered Medication Orders Aspirin (Ecotrin) 325 mg PO BID [facility] Bisacodyl (Dulcolax) 5 mg PO DAILY PRN PRN Reason: Constipation Carvedilol (Coreg) 25 mg PO BID [facility] Last Admin: 05/17/17 20:23 Dose: 25 mg Cholecalciferol (Vitamin D3) 1,000 units PO DAILY [facility] Cyclobenzaprine HCl (Flexeril) 10 mg PO TID PRN PRN Reason: Spasms Docusate Sodium (Colace) 100 mg PO BID [facility] Last Admin: 05/17/17 20:23 Dose: 100 mg Famotidine (Pepcid) 20 mg PO BID [facility] Last Admin: 05/17/17 20:30 Dose: 20 mg Cefazolin Sodium/Dextrose 2 gm (/ Premix) 50 mls @ 100 mls/hr IV Q8H [facility] Stop: 05/18/17 07:29 Last Admin: 05/18/17 06:28 Dose: 100 mls/hr Infusion: 05/17/17 23:38 Dose: 100 mls/hr Admin: 05/17/17 23:08 Dose: 100 mls/hr Infusion: 05/17/17 15:58 Dose: 100 mls/hr Admin: 05/17/17 15:28 Dose: 100 mls/hr Ketorolac Tromethamine (Toradol) 15 mg IVPUSH Q6H PRN PRN Reason: Pain Levothyroxine Sodium (Levothyroxine) 25 mcg PO DAILY [facility] Magnesium Hydroxide (Milk Of Magnesia) 30 ml PO BID PRN PRN Reason: Constipation Morphine Sulfate (Morphine) 2 mg IVPUSH Q2H PRN PRN Reason: Breakthrough Pain Naloxone HCl (Narcan) 0.1 mg IVPUSH Q5M PRN PRN Reason: Oversedation Ondansetron HCl (Zofran) 4 mg IVPUSH Q6H PRN PRN Reason: Nausea/Vomiting Oxycodone/Acetaminophen (Percocet 325-5 Mg) 1 - 2 tab PO Q4H PRN PRN Reason: Pain Last Admin: 05/18/17 06:28 Dose: 1 tab Admin: 05/17/17 20:22 Dose: 2 tab Pantoprazole Sodium (Protonix) 40 mg PO DAILY PRN PRN Reason: Indigestion Senna (Senna) 8.6 mg PO BID PRN PRN Reason: Constipation Simvastatin (Zocor) 20 mg PO BEDTIME [facility] Last Admin: 05/17/17 20:30 Dose: 20 mg - Assessment Assessment (Free Text/Narrative):: POD#1 - left knee revision arthroplasty and right knee cortisone injection - Plan Plan (Free Text/Narrative):: 1. ASA, TEDs, frequent mobility. 2. Hgb 11.2. 3. Discharge to home today. The pt's case was discussed with Dr. Rodriguez.
[2017-05-18] MEDS ORDERED: Levothyroxine 25 MCG Tab PO SCH (09:00)
[2017-05-18] MEDS ORDERED: Aspirin 325 MG Tab.EC PO SCH (09:00)
[2017-05-18] MEDS ORDERED: Cholecalciferol (Vitamin D3) 1,000 Unit Tab PO SCH (09:00)
--- NOTE | 2017-05-18 09:49 | PCM48HPAN ---
Post Anesthesia Note - EVALUATION WITHIN 48HRS OF ANESTHETIC Vital Signs in Normal Range: Yes Patient Participated in Evaluation: Yes Respiratory Function Stable: Yes Airway Patent: Yes Cardiovascular Function Stable: Yes Hydration Status Stable: Yes Pain Control Satisfactory: Yes Nausea and Vomiting Control Satisfactory: Yes Mental Status Recovered: Yes Pulse Rate: 72 Resp Rate: 20 Temperature: 37.1 C Blood Pressure: 139/75
[2017-05-18] MEDS: Docusate Sodium 100 MG Cap PO SCH (10:02)
[2017-05-18] MEDS: Carvedilol 12.5 MG Tab PO SCH (10:02)
[2017-05-18] MEDS: Famotidine 20 MG Tab PO SCH (10:04)
--- NOTE | 2017-05-21 21:11 | PCM.OPNOTE ---
- General Post-Op/Procedure Note Date of Surgery/Procedure: 05/17/17 Operative Procedure(s): revision left total knee arthroplasty with right knee corticosteroid injection Pre Op Diagnosis: painful left unicompartmental knee arthroplasty with right knee osteoarthrosis Post-Op Diagnosis: Same Anesthesia Technique: Local, MAC, Spinal Primary Surgeon: Long Rodriguez Anesthesia Provider: Mynor Mendez Tile Layer Supervisor: Sandrine Potts EBL in mLs: 10 Complications: None Condition: Good
--- NOTE | 2017-05-21 22:48 | OR ---
DATE OF OPERATION: 05/17/2017 SURGEON: Long Rodriguez MD OPERATION PERFORMED: Revision left total knee arthroplasty with right knee corticosteroid injection. PREOPERATIVE DIAGNOSIS: Painful left unicompartmental knee arthroplasty with right knee osteoarthrosis. POSTOPERATIVE DIAGNOSIS: Painful left unicompartmental knee arthroplasty with right knee osteoarthrosis. ANESTHESIA: Local MAC with spinal. ANESTHESIA PROVIDER: Mynor Mendez. BALER: Sandrine Potts PA-C. ESTIMATED BLOOD LOSS: 10 mL. COMPLICATIONS: None. CONDITION: Stable. IMPLANTS: 1. [place] size 5 PS femur. 2. [place] size 5 universal tibial base plate. 3. [place] size 5, 13 mm PS X3 polyethylene. 4. [place] size 29 x 9 mm asymmetric patella. DESCRIPTION OF PROCEDURE: The patient was identified in the preop holding area. Proper site was marked and identified by the surgeon. The patient was taken back to the operating theater where after adequate anesthesia, the patient had a nonsterile tourniquet applied to the left lower extremity and it was then sterilely prepped and draped in the usual sterile fashion. OR time-out was performed. The patient received appropriate preoperative antibiotics. At this time, the left lower extremity was exsanguinated. Tourniquet was insufflated to 300 mmHg. Standard medial parapatellar incision was made utilizing the previous incision. At this time, this was taken down to the Rico's fascia which was incised and the medial parapatellar arthrotomy was then created. Deep fibers of the MCL were raised and the remainder of the anterior fat pad was resected. At this time, attention was turned to the patella. Patella measured a 23, and it was resected to a 13 for 29 x 9 mm patella. Drill holes were then drilled and found to be in adequate position. At this time, attention was turned to the medial unicompartmental knee arthroplasty. At this time, it did show significant degenerative wear as well as some loosening noted especially on the femoral component. With the use of a reciprocal saw, I was able to undermine the cement interface on both the tibia and the femur and removed the implants with little difficulty. A bone tap was used for the final removal of them. At this time, there was found to be adequate bone stock. All the remainder of the previous cement was removed. At this time, intramedullary drill hole was drilled in the distal femur and the distal femoral cutting guide was placed. An 8 mm was then resected off the distal femur. Sizing guide was then placed. It was found to be a size 5 femur. Epicondylar axis holes were then drilled while holding the jig for it, while maintaining the proper external rotation using Whitesides line and epicondyles as reference. A 4-in-1 cutting block for a size 5 was then placed. An anterior posterior and anterior and posterior chamfer cuts were then completed and found to be adequate. At this time, box cut was completed for a size 5 and was found to be adequate. Attention was turned to the tibia. Posterior medial lateral retractors were placed, and an extramedullary tibial cutting guide was then placed in the old footprint of the ACL. At this time, it was set for the center of the ankle and 2 mm was measured off the medial side which had the previous defect. At this time, the resection was carried out and was found to be adequate. The size 5 base plate was found to have adequate coverage at this time, and remaining meniscus as well as osteophytes were removed. Trial implants were then placed, size 11 polyethylene was trialed first. The patient's knee was found to be a tad bit loose. At this time, a 13 mm polyethylene was placed. The patient had full flexion and extension. There was no liftoff of the polyethylene. The patient's patella was tracking centrally. A 16 was tried, but at this time, the patient has was noted to have severe patella baja secondary to the increased polyethylene thickness with lift- off of the polyethylene. So at this time, a 13 was decided on. At this time, the tibia was stamped and drilled in proper rotation. All cut surfaces were irrigated with pulse lavage irrigation with Ancef and cement was mixed on the back table. Once the cement was ready, a size 5 universal tibial base plate was cemented into place, size 5 PS femur was cemented into place, and a 13 mm PS X3 polyethylene was then impacted into place. The patient's knee was brought to full extension and excess cement was removed. A 29 x 9 mm patella was then inspected, cemented into place. At this time, 1 L dilute Betadine solution was irrigated through the knee along with 3 L pulse lavage irrigation with Ancef. Periarticular injection was then completed. A #2 barbed suture was used for closure of the medial parapatellar arthrotomy. Topical tranexamic acid as well as vancomycin powder was placed. A 2-0 Vicryl was used subcutaneously and a running 3-0 Monocryl as well as Prineo was used for the skin. The patient had sterile soft dressing applied. Next, a 2 mL of 40 mg Kenalog and 4 mL of 0.25% Marcaine were injected under sterile technique to the right knee. The patient tolerated both procedures well and sent to the PACU in stable condition. MMODAL /[id number]
== END 2017-05-18 10:55 | disposition home or self-care (01) ==
LOC: JD.SDS 06:02 → EDSTATUS 08:00 → JD.MS 14:11 → JD.SDS 05-18 10:55
PROVIDERS: ATTEND Orthopaedic Surgery
DX: M17.11 Unilateral primary osteoarthritis, right knee (principal); T84.84XA Pain due to internal orthopedic prosthetic devices, implants and grafts, initial encounter; I10 Essential (primary) hypertension; K21.9 Gastro-esophageal reflux disease without esophagitis; E03.9 Hypothyroidism, unspecified; E78.00 Pure hypercholesterolemia, unspecified; Z79.899 Other long term (current) drug therapy
CPT/HCPCS: 27487; 36415; 73560; 80053; 85025; 87641; 97110; 97116; 97162; 97165; 97535; A9270; C1713; C1776; J0171; J0690; J0697; J1100; J1885; J2250; J2270; J2405; J2795; J3010; J3301; J3370; J3490; J7120; J2704

== ENCOUNTER 2019-12-25 07:27 | Day surgery (SDC) | payer MEDICARE, BC ==
--- NOTE | 2019-12-24 15:58 | PCM.SN.2 ---
- Free Text/Narrative Note: Date: 12/25/2019 Time Out: 922 Start: 922 Stop: 935 Surgical Procedure: Right Reverse Total Shoulder Arthroplasty Diagnosis Right Glenohumeral arthritis Current Procedure: Right interscalene block under US guidance for postoperative pain control requested by Dr. Rodriguez. Patient chart reviewed, risk/benefits discussed with patient, consent obtained. Patient positioned supine, monitors/alarms on, oxygen placed via nasal cannula at 2 LPM. IV sedation administered: Versed 2mg IV, Fentanyl 50mcg IV given in preop prior to block placement. Right shoulder prepped with two chloropreps. Sterile drapes placed with aseptic technique noted. Under US guidance, right subclavian artery visualized along with the right brachial plexus. Plexus followed up to C6 cricoid level, and area localized with 2mls of 1% lidocaine. 22gauge 2 inch stimiplex needle advanced under US with 0.6mV with stimulation of biceps noted. Good stimulation noted with decreased voltage and absent at 0.3mVs. 1ml of Normal Saline injected with loss of stimulation noted to confirm needle not placed intraneurally. Incremental dosing of 5mls with negative aspiration noted prior to each injection of 0.5% ropivacaine with 1:200,000 epinephrine. Total volume=30mls. Please refer to nurses noted for vital signs. Pily Brown CRNA
--- NOTE | 2019-12-24 16:11 | PCM.PREANE ---
<Pily Brown - Last Filed: 12/24/19 16:13> Preanesthetic Assessment - Procedure Proposed Procedure: Right Reverse Total Shoulder Arthroplasty - Anesthesia/Transfusion/Family Hx Anesthesia History: Prior Anesthesia Reaction Type of Anesthesia Reaction: Excessive Nausea/Vomiting Family History of Anesthesia Reaction: No Transfusion History: No Prior Transfusion(s) Intubation History: Unknown - Review of Systems Pulmonary: No Symptoms (ETOH:) Cardiovascular: No Symptoms (HTN, elevated cholesterol) Gastrointestinal: No Symptoms (GERD) Neurological: No Symptoms (History of lower back surgery) Other: Reports: Thyroid Problems (hypothyroid), Sinus Problem (allergic rhinitis) - Physical Assessment NPO Status Date: 12/24/19 Vital Signs: HR: Sat: Temp: B/P: Resp: Height: 1.68 m ASA Class: 2 Mental Status: Alert & Oriented x3 - Lab Values: All labs reviewed and noted and within acceptable ranges to proceed with scheduled procedure. - Imaging/EKG Impressions: EKG: SR rate =62 CXR: negative - Allergies Allergies/Adverse Reactions: Allergies Allergy/AdvReac Type Severity Reaction Status Date / Time cimetidine Allergy Muscle Verified 12/24/19 14:36 Aches latex Allergy Blisters Verified 12/24/19 14:36 Penicillins Allergy Cannot Verified 12/24/19 14:36 Remember hydrochlorothiazide AdvReac Cough Verified 12/24/19 14:36 lisinopril AdvReac Cough Verified 12/24/19 14:36 diuretics AdvReac Cough Uncoded 12/24/19 14:36 - Anesthesia Plan Pre-Op Medication Ordered: Beta Joann Beta Joann: Carvedilol Med Last Dose Date: 12/25/19 - Acknowledgements Anesthesia Type Planned: General Anesthesia (Right ISB under US guidance for post operative pain control requested by Dr. 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 Musculoskeletal History: Reports: Osteoarthritis, Other (See Below) Neurological History: Reports: None Psychiatric History: Reports: None Endocrine/Metabolic History: Reports: Hypothyroidism, Osteopenia Hematologic History: Reports: None Immunologic History: Reports: None Oncologic (Cancer) History: Reports: None Dermatologic History: Reports: None, Melanoma - Past Surgical History Head Surgeries/Procedures: Reports: None HEENT Surgical History: Reports: Myringotomy w Tube(s), Naso-Sinus Surgery, Tonsillectomy Cardiovascular Surgical History: Reports: None Respiratory Surgical History: Reports: None GI Surgical History: Reports: Appendectomy, Colonoscopy Female Surgical History: Reports: Breast Biopsy Male Surgical History: Reports: None Endocrine Surgical History: Reports: None Neurological Surgical History: Reports: Other (See Below) Other Neurological Surgeries/Procedures: disc repair, low back surgery Musculoskeletal Surgical History: Reports: Other (See Below) Other Musculoskeletal Surgeries/Procedures:: palmar fascia contracture with surgical repair, right knee arthroplasty, right shoulder arthroplasty, tumor removed from left foot x2, left knee arthroplasty, left wrist ORIF, bilateral knee surgeries Oncologic Surgical History: Reports: None Dermatological Surgical History: Reports: None - SUBSTANCE USE Smoking Status *Q: Never Smoker Recreational Drug Use History: No - HOME MEDS Home Medications: Home Meds Pantoprazole Sodium [Protonix] 40 mg PO DAILY PRN 05/16/17 [History] Simvastatin [Zocor] 20 mg PO BEDTIME 05/16/17 [History] carvediloL [Carvedilol] 25 mg PO BID 05/16/17 [History] Cholecalciferol (Vitamin D3) [Vitamin D3] 5,000 unit PO DAILY 12/24/19 [History] Loratadine [Claritin] 10 mg PO DAILY 12/24/19 [History] Olmesartan Medoxomil 5 mg PO BID 12/24/19 [History] Spironolactone [Aldactone] 25 mg PO DAILY 12/24/19 [History] Aspirin 325 mg PO DAILY #40 tab 12/25/19 [Rx] Cyclobenzaprine [Flexeril] 10 mg PO Q12H PRN #20 tab 12/25/19 [Rx] oxyCODONE 5 - 10 mg PO Q4H PRN #60 tab 12/25/19 [Rx] <Anel Barrientos - Last Filed: 12/25/19 08:11> Preanesthetic Assessment - Anesthesia/Transfusion/Family Hx Anesthesia History: Prior Anesthesia Reaction Type of Anesthesia Reaction: Excessive Nausea/Vomiting Family History of Anesthesia Reaction: No Transfusion History: No Prior Transfusion(s) Intubation History: Unknown - Review of Systems General: No Symptoms Pulmonary: No Symptoms Cardiovascular: No Symptoms Gastrointestinal: No Symptoms (GERD controlled with medication. No symptoms this morning. ) Neurological: No Symptoms (History of lower back surgery, still has pain that radiates down her right leg. ) Other: Reports: Thyroid Problems, Sinus Problem - Physical Assessment Vital Signs: 73 143/84 98% 96.8 16 ASA Class: 2 Mental Status: Alert & Oriented x3 Airway Class: Mallampati = 2 Dentition: Reports: Normal Dentition Thyro-Mental Finger Breadths: 2 Mouth Opening Finger Breadths: 3 ROM/Head Extension: Full Lungs: Clear to Auscultation, Normal Respiratory Effort Cardiovascular: Regular Rate, Regular Rhythm - Anesthesia Plan Pre-Op Medication Ordered: Beta Joann Beta Joann: Carvedilol Med Last Dose Time: 05:00 - Acknowledgements Anesthesia Type Planned: General Anesthesia, Regional Block (Interscalene Nerve Block for Post Operative Pain Control) Pt an Appropriate Candidate for the Planned Anesthesia: Yes Alternatives and Risks of Anesthesia Discussed w Pt/Guardian: Yes Pt/Guardian Understands and Agrees with Anesthesia Plan: Yes PreAnesthesia Questionnaire - CURRENT (IN HOUSE) MEDS Current Meds: Current Medications Lactated Ringer's (Ringers, Lactated) 1,000 mls @ 125 mls/hr IV ASDIRECTED JAROCHO Stop: 12/25/19 23:00 Lidocaine/Sodium Bicarbonate (Buffered Lidocaine 1% In Ns 8.4%) 0.25 ml IDERM ONETIME PRN PRN Reason: Prior to IV Start Stop: 12/25/19 18:00 Scopolamine (Transderm-Scop) 1.5 mg TOP ONETIME JAROCHO Stop: 12/25/19 13:00 Last Admin: 12/25/19 07:54 Dose: 1.5 mg Documented by: Sodium Chloride (Saline Flush) 10 ml FLUSH ASDIRECTED PRN PRN Reason: Keep Vein Open Stop: 12/25/19 18:00 Discontinued Medications Cefazolin Sodium (Ancef) Confirm Administered Dose 2 gm .ROUTE .STK-MED ONE Stop: 12/25/19 06:18 Dexamethasone (Dexamethasone) Confirm Administered Dose 20 mg .ROUTE .STK-MED ONE Stop: 12/25/19 06:18 Diphenhydramine HCl (Benadryl) Confirm Administered Dose 50 mg .ROUTE .STK-MED ONE Stop: 12/25/19 06:18 Fentanyl (Sublimaze) Confirm Administered Dose 250 mcg .ROUTE .STK-MED ONE Stop: 12/25/19 06:19 Lidocaine HCl (Xylocaine-Mpf 1%) Confirm Administered Dose 4 mls @ as directed .ROUTE .STK-MED ONE Stop: 12/25/19 06:18 Lactated Ringer's (Ringers, Lactated) Confirm Administered Dose 1,000 mls @ as directed .ROUTE .STK-MED ONE Stop: 12/25/19 06:18 Ketorolac Tromethamine (Toradol) Confirm Administered Dose 30 mg .ROUTE .STK-MED ONE Stop: 12/25/19 06:18 Midazolam HCl (Versed 1 Mg/Ml) Confirm Administered Dose 2 mg .ROUTE .STK-MED ONE Stop: 12/25/19 06:18 Ondansetron HCl (Zofran) Confirm Administered Dose 4 mg .ROUTE .STK-MED ONE Stop: 12/25/19 06:18 Propofol (Diprivan 20 Ml) Confirm Administered Dose 200 mg .ROUTE .STK-MED ONE Stop: 12/25/19 06:18 Rocuronium Wilmer (Zemuron) Confirm Administered Dose 50 mg .ROUTE .STK-MED ONE Stop: 12/25/19 06:18
[~2019-12-25 07:27] MED LIST changes: +Dexamethasone 4 MG/ML 5 ML MDV ONE; +Ketorolac 30 MG/ML SDV ONE; +Lactated Ringers 1,000 ML ONE; +Lidocaine 1% 4 ML ONE; +Midazolam 1 MG/ML 2 ML SDV ONE; +Ondansetron 4 MG/2 ML SDV ONE; +Propofol 200 MG/20 ML SDV ONE; +Rocuronium 50 MG/5 ML Vial ONE; -Scopolamine 1 MG Transdermal Patch TRDERM ONE; +Scopolamine 1.5 MG Transdermal Patch TOP SCH; +ceFAZolin 1 GM Vial ONE; +diphenhydrAMINE 50 MG/ML SDV ONE; +fentaNYL 250 MCG/5 ML SDV ONE
[2019-12-25] MEDS ORDERED: Ondansetron 4 MG/2 ML SDV IVPUSH PRN (10:13)
[2019-12-25] MEDS ORDERED: fentaNYL 100 MCG/2 ML SDV IVPUSH PRN (10:13)
[2019-12-25] MEDS ORDERED: ePHEDrine 50 MG/ML SDV IVPUSH PRN (10:13)
[2019-12-25] MEDS ORDERED: HYDROmorphone 0.5 MG/0.5 ML Syringe IVPUSH PRN (10:14)
[2019-12-25] MEDS ORDERED: ePHEDrine Sulfate/0.9% NaCl/Pf 25 MG/5 ML SYRINGE IV ONE ×2 (10:24→10:58)
[2019-12-25] MEDS: Vancomycin 1 GM SDV ONE ×2 (10:35→11:07)
[2019-12-25] MEDS ORDERED: Haloperidol Lactate 5 MG/ML SDV IVPUSH ONE (11:00)
--- NOTE | 2019-12-25 11:54 | PCM.POSTAN ---
POST ANESTHESIA ASSESSMENT - MENTAL STATUS Mental Status: Alert - VITAL SIGNS Vital Signs: Last Vital Signs Temp 36.4 C 12/25/19 11:36 Pulse 64 12/25/19 11:45 Resp 13 12/25/19 11:45 BP 132/87 12/25/19 11:45 Pulse Ox 97 12/25/19 11:45 - RESPIRATORY Respiratory Status: Respiratory Rate WNL, Airway Patent, O2 Saturation Stable, Supplemental Oxygen - CARDIOVASCULAR CV Status: Pulse Rate WNL, Blood Pressure Stable - GASTROINTESTINAL GI Status: No Symptoms - POST OP HYDRATION Hydration Status: Adequate & Stable
[2019-12-25] MEDS ORDERED: oxyCODONE 5 MG Tab PO PRN (12:36)
--- NOTE | 2020-01-02 11:45 | PCM.OPNOTE ---
- General Post-Op/Procedure Note Date of Surgery/Procedure: 12/25/19 Operative Procedure(s): right reverse total shoulder arthroplasty Pre Op Diagnosis: right shoulder rotator cuff tear arthropathy Post-Op Diagnosis: Same Anesthesia Technique: General ET Tube, Regional Block Primary Surgeon: Long Rodriguez Anesthesia Provider: Pily Brown Supervisor Paint: Sandrine Potts Supervisor Paint: Thelma Downing EBL in mLs: 100 Complications: None Condition: Good Free Text/Narrative:: 15 stem 28 baseplate 32+6 glenosphere 4mm poly
--- NOTE | 2020-01-02 12:16 | OR ---
DATE OF OPERATION: 12/25/2019 SURGEON: Long Rodriguez MD OPERATION PERFORMED: Right reverse total shoulder arthroplasty. PREOPERATIVE DIAGNOSIS: Right shoulder rotator cuff tear arthropathy. POSTOPERATIVE DIAGNOSIS: Right shoulder rotator cuff tear arthropathy. ANESTHESIA: General endotracheal intubation with regional interscalene block. ANESTHESIA PROVIDER: Pily Brown CRNA. ASSISTANTS: Sandrine Potts PA-C, and Thelma Downing LPN. ESTIMATED BLOOD LOSS: 100 mL. COMPLICATIONS: None. CONDITION: Stable. IMPLANTS: 1. [place] size 15 mm reverse total shoulder arthroplasty stem. 2. [place] 28 mm concentric base plate. 3. [place] size 32 +6 Glenosphere. 4. [place] size 4 mm poly. DESCRIPTION OF PROCEDURE: The patient was identified in the preop holding area where the proper site was marked and identified by the surgeon. The patient was taken back to the operative theater where after adequate anesthesia, the patient's right upper extremity was sterilely prepped and draped in the usual sterile fashion. OR time-out was performed. The patient did receive preoperative antibiotics. At this time, standard deltopectoral incision was made centered over the cephalic vein. This was taken down to the cephalic vein. Cephalic vein was then retracted laterally, the clavipectoral fascia was incised, and the conjoined tendon was retracted medially. The anterior humeral circumflex vessels were then ligated. Subpectoral tenodesis was then performed, and resection of the biceps was done all the way up to the level of the glenoid. Peel down of the subscapularis tendon was then done, and the humeral head was dislocated. Neck cut was then completed and found to be adequate. Attention was turned to the glenoid. Anterior and posterior glenoid retractors were then placed. Circumferential removal of any remaining biceps as well as labrum as well as a capsulectomy was then performed. I had good visualization of the glenoid. At this point, a guide pin was placed in a center-center position with roughly 10 degrees of inferior tilt. The [place] concentric 28 mm reamer was then utilized until there was good cancellous bone on the inferior and anterior portion of the glenoid. At this time, the Glenosphere was screwed into place using the central compression screw, and then inferior and superior locking screws were placed. A 32 +6 mm Glenosphere was then impacted into place, and attention was turned back to the humerus. Starting with a 10 broach, I was able to broach up to a 15 which was found to be rotationally vertically stable. Calcar planer was then utilized, and a +4 poly trial was placed. The patient's shoulder was stable throughout range of motion and had good tension, but no over-tensioning of the conjoined tendon and deltoid, and there was no instability. was then used for dislocation of the shoulder, and the [place] 135 degree size 15 stem with +4 poly was constructed on the back table and then impacted into the humerus. The shoulder was again reduced. At this time, C-arm fluoroscopy was utilized to make sure all components were in good position and the shoulder was stable throughout range of motion, which it was. Irrisept was then irrigated through the shoulder along with 1 L of saline. Tranexamic acid as well as vancomycin powder were applied. A 2-0 Vicryl was used subcutaneously, and Prineo was used for the skin. The patient tolerated the procedure well and was sent to the PACU in stable condition. ASIA /[id number]
--- NOTE | 2020-02-02 13:13 | CR ---
PROCEDURE INFORMATION: Exam: XR Right Shoulder Exam date and time: 12/25/2019 11:41 AM Age: 64 years old Clinical indication: Condition or disease; Other: Pain; Patient HX: Right shoulder repair TECHNIQUE: Imaging protocol: XR Right shoulder. Views: 1 view. COMPARISON: CR Shoulder Comp Rt 01/24/2019 9:30 AM FINDINGS: Bones/joints: There is right total shoulder replacement. This is seen view study demonstrating it to be in good alignment on this one view. There is mild soft tissue and/or joint air. Soft tissues: Normal. IMPRESSION: Based upon the single view of the shoulder replacement appears in good alignment. Thank you for allowing us to participate in the care of your patient. Dictated and Authenticated by: Sloan Gallegos MD 02/02/2020 11:56 AM Central Time ([place] & [place]) [facility]
--- NOTE | 2020-02-02 13:14 | CR ---
PROCEDURE INFORMATION: Exam: FL Fluoroscopy, Up to 1 Hour Physician Time; Radiologist Not Present For Fluoroscopy Exam date and time: 12/25/2019 11:03 AM Age: 64 years old Clinical indication: Condition or disease; Condition/disease: Right total shoulder replacement TECHNIQUE: Imaging protocol: Fluoroscopy , up to 1 hour physician or other qualified health skin care instructor time. This radiologist did not supervise this procedure. Exam supervised by facility personnel. Report for radiation dosage reporting and documentation only. COMPARISON: No relevant prior studies available. RADIATION DOSE METRICS: Fluoroscopy time (seconds): 5 seconds Number of fluoro spot images: 4 Reference air kerma (CHRIS): Not provided. FINDINGS: Procedural imaging: Total shoulder replacement. Notes: Fluoroscopy supervised by facility personnel. See also separate procedure report. IMPRESSION: Fluoroscopy dosage documentation. See also separate procedure notes. Thank you for allowing us to participate in the care of your patient. Dictated and Authenticated by: Sloan Gallegos MD 02/02/2020 11:56 AM Central Time ([place] & [place]) [facility]
== END 2019-12-25 15:21 | disposition home or self-care (01) ==
LOC: JD.SDS 07:27 → EDSTATUS 12:15 → JD.SDS 15:21
PROVIDERS: ATTEND Orthopaedic Surgery
DX: M19.011 Primary osteoarthritis, right shoulder (principal); M75.101 Unspecified rotator cuff tear or rupture of right shoulder, not specified as traumatic; K21.9 Gastro-esophageal reflux disease without esophagitis; I10 Essential (primary) hypertension; E78.00 Pure hypercholesterolemia, unspecified; Z88.0 Allergy status to penicillin; Z88.1 Allergy status to other antibiotic agents; Z88.8 Allergy status to other drugs, medicaments and biological substances; Z91.040 Latex allergy status; Z79.899 Other long term (current) drug therapy; Z98.890 Other specified postprocedural states; G89.18 Other acute postprocedural pain; Z79.82 Long term (current) use of aspirin; Z01.812 Encounter for preprocedural laboratory examination; Z20.828 Contact with and (suspected) exposure to other viral communicable diseases
CPT/HCPCS: 23474; 36415; 73020; 76000; 85610; 85730; 97110; 97161; A9270; C1713; C1776; J0171; J0690; J1100; J1200; J1885; J2001; J2250; J2370; J2405; J2704; J2710; J3010; J3370; J7120; U0002; 01638; 64415

== ENCOUNTER 2021-12-05 08:05 | Day surgery (SDC) | payer MEDICARE, BC ==
[~2021-12-05 08:05] MED LIST changes: +Acetaminophen 325 MG Tab PO SCH; -Dexamethasone 4 MG/ML 5 ML MDV ONE; -Ketorolac 30 MG/ML SDV ONE; -Lactated Ringers 1,000 ML ONE; -Lidocaine 1% 4 ML ONE; -Midazolam 1 MG/ML 2 ML SDV ONE; -Ondansetron 4 MG/2 ML SDV ONE; +Pregabalin 25 MG Cap PO SCH; -Propofol 200 MG/20 ML SDV ONE; -Rocuronium 50 MG/5 ML Vial ONE; -Scopolamine 1.5 MG Transdermal Patch TOP SCH; +Vancomycin 1 GM SDV ONE; -ceFAZolin 1 GM Vial ONE; -diphenhydrAMINE 50 MG/ML SDV ONE; -fentaNYL 250 MCG/5 ML SDV ONE; +oxyCODONE ER 10 MG TAB.ER PO SCH
[2021-12-05] MEDS ORDERED: Scopolamine 1.5 MG Transdermal Patch TOP ONE (08:12)
[2021-12-05] MEDS ORDERED: EPINEPHrine 1 MG/ML SDV ONE (08:33)
[2021-12-05] MEDS ORDERED: Ropivacaine 0.5% 5 MG/ML 30 ML SDV ONE (08:33)
[2021-12-05] MEDS ORDERED: fentaNYL 250 MCG/5 ML SDV ONE (08:34)
[2021-12-05] MEDS ORDERED: Midazolam 1 MG/ML 2 ML SDV ONE (08:34)
[2021-12-05] MEDS ORDERED: Bupivacaine 0.25% 10 ML SDV ONE (08:39)
[2021-12-05] MEDS ORDERED: Triamcinolone Acetonide 40 MG/ML 1 ML SDV ONE (08:39)
[2021-12-05] MEDS ORDERED: Sodium Chloride 0.9% 10 ML Syringe FLUSH SCH (09:00)
[2021-12-05] MEDS ORDERED: Rocuronium 50 MG/5 ML Vial ONE (09:01)
[2021-12-05] MEDS ORDERED: diphenhydrAMINE 50 MG/ML SDV ONE (09:01)
[2021-12-05] MEDS ORDERED: Lidocaine 1% 5 ML VIAL ONE (09:01)
[2021-12-05] MEDS ORDERED: Dexamethasone 4 MG/ML 5 ML MDV ONE (09:01)
[2021-12-05] MEDS ORDERED: Ondansetron 4 MG/2 ML SDV ONE (09:01)
[2021-12-05] MEDS ORDERED: Propofol 200 MG/20 ML SDV ONE ×3 (09:02)
[2021-12-05] MEDS ORDERED: Sugammadex Sodium 200 MG/2 ML VIAL ONE (09:06)
[2021-12-05] MEDS ORDERED: ceFAZolin 2 GM Vial ONE (09:06)
[2021-12-05] MEDS ORDERED: Phenylephrine HCl In 0.9% NaCl 1 MG/10 ML Vial ONE (09:37)
[2021-12-05] MEDS ORDERED: ePHEDrine 50 MG/ML SDV ONE (09:51)
[2021-12-05] MEDS ORDERED: Lactated Ringers 1,000 ML ONE (10:14)
[2021-12-05] MEDS ORDERED: fentaNYL 100 MCG/2 ML SDV IVPUSH PRN (10:30)
[2021-12-05] MEDS ORDERED: Ondansetron 4 MG/2 ML SDV IVPUSH PRN (10:30)
[2021-12-05] MEDS ORDERED: HYDROmorphone 0.5 MG/0.5 ML Syringe IVPUSH PRN (10:30)
[2021-12-05] MEDS ORDERED: oxyCODONE 5 MG Tab PO ONE (13:30)
== END 2021-12-05 13:10 | disposition home or self-care (01) ==
LOC: JD.SDS 08:05 → EDSTATUS 10:00 → JD.SDS 13:10
PROVIDERS: ATTEND Orthopaedic Surgery
DX: T84.038A Mechanical loosening of other internal prosthetic joint, initial encounter (principal); T84.84XA Pain due to internal orthopedic prosthetic devices, implants and grafts, initial encounter; M18.0 Bilateral primary osteoarthritis of first carpometacarpal joints; K21.9 Gastro-esophageal reflux disease without esophagitis; I10 Essential (primary) hypertension; E78.00 Pure hypercholesterolemia, unspecified; E03.9 Hypothyroidism, unspecified; E11.9 Type 2 diabetes mellitus without complications; R23.3 Spontaneous ecchymoses; J30.9 Allergic rhinitis, unspecified; F41.9 Anxiety disorder, unspecified; E66.9 Obesity, unspecified; Z88.8 Allergy status to other drugs, medicaments and biological substances; Z88.0 Allergy status to penicillin; Z91.040 Latex allergy status; Z79.899 Other long term (current) drug therapy; Z90.49 Acquired absence of other specified parts of digestive tract; Z98.890 Other specified postprocedural states
CPT/HCPCS: 01638; 64415; 73020-26-RT; 73020-RT; 76000; 76000-26; 76942; 97166-GO; 97530-GO; A9270-GY; C1713; C1769; C1776; J0171; J0690; J1100; J1200; J2250; J2405; J2704; J2795; J3010; J3301; J3370; J3490; J7120

== ENCOUNTER 2022-11-01 14:18 | Emergency (ER) | payer MEDICARE, BC ==
[2022-11-01] MEDS ORDERED: Sodium Chloride 0.9% 10 ML Syringe FLUSH PRN (14:31)
[2022-11-01] MEDS ORDERED: Sodium Chloride 0.9% 1,000 ML IV ONE (14:32)
[2022-11-01] MEDS ORDERED: Potassium Chloride 20 MEQ Tab.ER PO ONE (14:34)
[2022-11-01] MEDS ORDERED: Loperamide 2 MG Cap PO ONE (14:38)
[2022-11-01 15:20] LABS: BASOPHILS ABSOLUTE AUTO 0.02 K/mm3 (0.01-0.08); BASOPHILS PERCENT AUTO 0.2 % (0.1-1.2); EOSINOPHILS ABSOLUTE AUTO 0.08 K/mm3 (0.04-0.36); EOSINOPHILS PERCENT AUTO 0.9 (0.7-5.8); HEMATOCRIT 40.5 % (34.1-44.9); HEMOGLOBIN 14.1 gm/dl (11.2-15.7); IMMATURE GRAN ABSOLUTE AUTO 0.03 K/mm3 (0.00-0.10); IMMATURE GRAN PERCENT AUTO 0.3 % (<=1.0); LYMPHOCYTES PERCENT AUTO 15.9 % (19.3-51.7); MEAN CORPUSCULAR HEMOGLOBIN 28.9 pg (25.6-32.2); MEAN CORPUSCULAR HGB CONC 34.8 g/dl (32.2-35.5); MEAN PLATELET VOLUME 10.3 fl (9.4-12.3); MONOCYTES ABSOLUTE AUTO 2.27 K/mm3 (0.24-0.36); MONOCYTES PERCENT AUTO 25.7 % (4.7-12.5); NEUTROPHILS ABSOLUTE AUTO 5.03 K/mm3 (1.56-6.13); PLATELET COUNT,PLT 274 K/mm3 (182-369); RED BLOOD CELL COUNT 4.88 M/mm3 (3.98-5.22); WHITE BLOOD CELL COUNT,WBC 8.83 K/mm3 (3.98-10.04)
[2022-11-01 15:41] LABS: A/G RATIO 0.9 (1-2); ALBUMIN 3.5 g/dl (3.4-5.0); ANION GAP 17.9 (5-15); BILIRUBIN TOTAL 0.4 mg/dL (0.2-1.0); BUN/CREATININE RATIO 23.5 (14-18); CALCIUM 8.8 mg/dL (8.5-10.1); EST CRCL DRUG DOSING (CG) 24.85 mL/min; MAGNESIUM 1.8 mg/dL (1.8-2.4); POTASSIUM,K 2.9 mEq/L (3.5-5.1); PROTEIN TOTAL,TP 7.6 g/dl (6.4-8.2)
== END 2022-11-01 16:21 | disposition home or self-care (01) ==
LOC: JD.ED 14:18
DX: E87.1 Hypo-osmolality and hyponatremia (principal); E87.6 Hypokalemia; R19.7 Diarrhea, unspecified; E11.9 Type 2 diabetes mellitus without complications; E78.00 Pure hypercholesterolemia, unspecified; I10 Essential (primary) hypertension; K21.9 Gastro-esophageal reflux disease without esophagitis; M19.90 Unspecified osteoarthritis, unspecified site; Z79.82 Long term (current) use of aspirin; Z79.899 Other long term (current) drug therapy; Z88.0 Allergy status to penicillin; Z88.8 Allergy status to other drugs, medicaments and biological substances; Z91.040 Latex allergy status
CPT/HCPCS: 36415; 80053; 83735; 85025; 96360; 99284; A9270; J7030; 82270-QW

== ENCOUNTER 2023-05-16 08:00 | Day surgery (SDC) | payer MEDICARE, BC ==
[~2023-05-16 08:00] MED LIST changes: -Acetaminophen 325 MG Tab PO SCH; -Lidocaine 1%/Sod Bicarbonate in NS 8.4% 1 ML Syringe IDERM PRN; -Pregabalin 25 MG Cap PO SCH; +Sodium Chloride 0.9% 10 ML Syringe FLUSH SCH; -Vancomycin 1 GM SDV ONE; -oxyCODONE ER 10 MG TAB.ER PO SCH
[2023-05-16] MEDS ORDERED: EPINEPHrine 1 MG/ML SDV ONE (08:09)
[2023-05-16] MEDS ORDERED: Ropivacaine 0.5% 5 MG/ML 30 ML SDV ONE (08:09)
[2023-05-16] MEDS ORDERED: dexmedeTOMIDine HCl 200 MCG/2 ML SDV ONE (08:10)
[2023-05-16] MEDS: Lactated Ringers 1,000 ML IV SCH (08:15)
[2023-05-16] MEDS ORDERED: Lidocaine 1% 6 ML ONE (08:15)
[2023-05-16] MEDS ORDERED: fentaNYL 100 MCG/2 ML SDV ONE ×2 (08:17→09:49)
[2023-05-16] MEDS ORDERED: Midazolam 1 MG/ML 2 ML SDV ONE (08:17)
[2023-05-16] MEDS: Scopalamine 1mg/3day Transdermal Patch TOP SCH (08:44)
[2023-05-16] MEDS ORDERED: Propofol 200 MG/20 ML SDV ONE (09:05)
[2023-05-16] MEDS ORDERED: ceFAZolin 2 GM Vial ONE (09:09)
[2023-05-16] MEDS ORDERED: Ondansetron 4 MG/2 ML SDV ONE (09:13)
[2023-05-16] MEDS: Triamcinolone Acetonide 40 MG/ML 1 ML SDV ONE (09:38)
[2023-05-16] MEDS: Bupivacaine 0.25% 10 ML SDV ONE (09:38)
[2023-05-16] MEDS ORDERED: Lactated Ringers 1,000 ML ONE (10:13)
== END 2023-05-16 11:20 | disposition home or self-care (01) ==
LOC: JD.SDS 08:00
PROVIDERS: ATTEND Orthopaedic Surgery
DX: M18.0 Bilateral primary osteoarthritis of first carpometacarpal joints (principal); I10 Essential (primary) hypertension; K21.9 Gastro-esophageal reflux disease without esophagitis; E78.00 Pure hypercholesterolemia, unspecified; E11.9 Type 2 diabetes mellitus without complications; Z98.890 Other specified postprocedural states; Z79.899 Other long term (current) drug therapy; Z91.040 Latex allergy status; Z88.0 Allergy status to penicillin; Z88.8 Allergy status to other drugs, medicaments and biological substances
CPT/HCPCS: 25447; 76000; 82947; A9270; C1713; J0171; J0690; J2250; J2405; J2704; J2795; J3010; J3301; J3490; J7120

== ENCOUNTER 2023-12-27 08:52 | Day surgery (SDC) | payer MEDICARE, BC ==
[~2023-12-27 08:52] MED LIST changes: -Lactated Ringers 1,000 ML IV SCH
[2023-12-27] MEDS ORDERED: Lidocaine 2% 5 ML SDV ONE ×3 (09:17)
[2023-12-27] MEDS ORDERED: Ropivacaine 0.5% 5 MG/ML 30 ML SDV ONE (09:18)
[2023-12-27] MEDS ORDERED: Midazolam 1 MG/ML 2 ML SDV ONE (09:18)
[2023-12-27] MEDS ORDERED: fentaNYL 100 MCG/2 ML SDV ONE ×2 (09:18→10:44)
[2023-12-27] MEDS: Scopalamine 1mg/3day Transdermal Patch TRDERM PRN (09:30)
[2023-12-27] MEDS: Lactated Ringers 1,000 ML IV SCH (09:30)
[2023-12-27] MEDS ORDERED: Propofol 200 MG/20 ML SDV ONE ×4 (09:52→10:50)
[2023-12-27] MEDS ORDERED: ceFAZolin 2 GM Vial ONE (10:28)
[2023-12-27] MEDS ORDERED: Dexamethasone 4 MG/ML 5 ML MDV ONE (11:13)
[2023-12-27] MEDS ORDERED: Ondansetron 4 MG/2 ML SDV ONE (11:13)
[2023-12-27] MEDS ORDERED: oxyCODONE 5 MG Tab PO PRN (11:47)
== END 2023-12-27 12:15 | disposition home or self-care (01) ==
LOC: JD.SDS 08:52
PROVIDERS: ATTEND Orthopaedic Surgery
DX: M19.042 Primary osteoarthritis, left hand (principal); I10 Essential (primary) hypertension; E11.9 Type 2 diabetes mellitus without complications; E78.00 Pure hypercholesterolemia, unspecified; K21.9 Gastro-esophageal reflux disease without esophagitis; Z79.899 Other long term (current) drug therapy; Z91.040 Latex allergy status
CPT/HCPCS: 25447; 76000; A9270; C1713; J0690; J1100; J2250; J2405; J2704; J2795; J3010; J7120; 01830; J3490